=== PATIENT | male | born 1995 | race Hispanic/Latino ===

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

== ENCOUNTER 2017-05-07 16:41 | Emergency (ER) | payer MEDICARE ==
[2017-05-07 17:01] VITALS: BP 150/100
[2017-05-07] MEDS ORDERED: NACL 0.9% 1000 ML 1,000 ML IV ONE (17:08)
[2017-05-07 17:25] LABS: Basophils % (Auto) 0.3 % (0.0-1.8); Eosinophils # (Auto) 0.1 K/mm3 (0.0-0.4); Hematocrit 50.2 % (35.5-45.6); Lymphocytes # (Auto) 1.9 K/mm3 (1.2-5.4); Lymphocytes % (Auto) 17.3 % (13.4-35.0); Mean Corpuscular HGB Conc 34 % (32-34); Mean Corpuscular Hemoglobin 30 pg (28-32); Mean Corpuscular Volume 89 fl (84-94); Monocytes # (Auto) 0.9 K/mm3 (0.0-0.8); Platelet Count 244 K/mm3 (140-440); Red Blood Count 5.65 M/mm3 (3.65-5.03); Red Cell Distribution Width 13.6 % (13.2-15.2)
[2017-05-07 17:37] LABS: Alanine Aminotransferase 31 units/L (7-56); Albumin 4.5 g/dL (3.9-5); BUN/Creatinine Ratio 15; Blood Urea Nitrogen 12 mg/dL (9-20); Calcium 8.8 mg/dL (8.4-10.2); Hemolysis Index 11
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
[2017-05-07] MEDS ORDERED: TORADOL IV ONE (18:49)
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
[2017-05-07 19:36] LABS: Bilirubin,Urine NEG (Negative); Blood,Urine SM (Negative); Color,Urine Straw (Yellow); Nitrite,Urine NEG (Negative); Protein,Urine <15 mg/dL mg/dL (Negative); Urobilinogen,Urine < 2.0 mg/dL (<2.0); WBC,Urine < 1.0 /HPF (0.0-6.0)
[2017-05-07 19:51] LABS: Amphetamine Screen,Urine PRESUMPTIVE NEGATIVE; Benzodiazepines Screen,Urine PRESUMPTIVE NEGATIVE; Cannabinoid Screen,Urine PRESUMPTIVE NEGATIVE; Cocaine Screen,Urine PRESUMPTIVE NEGATIVE; Methadone Screen,Urine PRESUMPTIVE NEGATIVE; Opiate Screen,Urine PRESUMPTIVE NEGATIVE
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
[2017-05-07] MEDS ORDERED: DILAUDID IV ONE (20:51)
[2017-05-07] MEDS ORDERED: TRIPLE ANTIBIOTIC TP ONE (21:02)
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
== END 2017-05-07 21:15 | disposition home or self-care (01) ==
LOC: ED 16:41
DX: S00.81XA Abrasion of other part of head, initial encounter (principal); S09.8XXA Other specified injuries of head, initial encounter; S80.812A Abrasion, left lower leg, initial encounter; S40.812A Abrasion of left upper arm, initial encounter; J45.909 Unspecified asthma, uncomplicated; F90.8 Attention-deficit hyperactivity disorder, other type; R07.9 Chest pain, unspecified; V13.4XXA Pedal cycle driver injured in collision with car, pick-up truck or van in traffic accident, initial encounter; Y93.89 Activity, other specified; Y92.89 Other specified places as the place of occurrence of the external cause; Y99.8 Other external cause status
CPT/HCPCS: 36415; 70450; 70486; 71260; 72125; 73030; 73060; 73070; 73090; 73130; 73562; 73590; 73610; 73630; 74177; 80053; 80307; 81001; 82550; 84484; 85025; 96361; 96374; 96375; 99285; G0480; J1170; J1885; J7030; Q9967; 80320; A6250

== ENCOUNTER 2021-06-05 06:34 | Emergency (ER) | payer MEDICARE ==
--- NOTE | 2021-06-05 08:42 | XRay Report ---
CHEST 2 VIEWS INDICATION: COUGH, CP. COMPARISON: None FINDINGS: SUPPORT DEVICES: None. HEART: Within normal limits. LUNGS/PLEURA: No acute air space or interstitial disease. No pneumothorax. ADDITIONAL FINDINGS: None. IMPRESSION: 1. No acute findings. Signer Name: Otis Rivera MD Signed: 06/05/2021 8:37 AM Workstation Name: [id number]
[2021-06-05] MEDS ORDERED: BENZONATATE 100 MG CAP PO ONE (09:31)
--- NOTE | 2021-06-05 09:36 | Emergency Department Report ---
- General Chief Complaint: Dyspnea/Respdistress Stated Complaint: CHEST SIDE PAIN/COUGH Time Seen by Provider: 06/05/21 09:11 Source: patient Mode of arrival: Ambulatory Limitations: No Limitations - History of Present Illness Initial Comments: This is a 26-year-old male nontoxic, well nourished in appearance, no acute signs of distress presents to the ED with c/o of productive cough, rhinorrhea, nasal congestion x several days. Patient describes productive cough as yellow mucus production. Patient denies any sick contacts. Stated is COVID vaccinated. Patient denies any recent travels, long car, recent hospital stays. Patient denies any calf pain or calf tenderness. Patient denies any chest pain, short of breath, fever, chills, nausea, vomiting, hemoptysis, numbness, tingling, headache or stiff neck. Patient denies any allergies or significant past medical history. MD Complaint: cough, rhinorrhea, nasal congestion -: days(s) Severity: mild Severity scale (0 -10): 0 Improves With: nothing Worsens With: nothing Associated Symptoms: rhinorrhea, nasal congestion, cough. denies: fever, chills, myalgias, diaphoresis, headache, sore throat, stiff neck, chest pain, shortness of breath, abdominal pain, nausea, vomiting, diarrhea, dysuria, rash, confusion, right sweats, weight loss, epistaxis, hoarseness, ear pain Treatments Prior to Arrival: none - Related Data Home Medications Medication Instructions Recorded Confirmed Last Taken Albuterol Mdi (or & Nicu Only) 2 puff IH QID PRN 01/13/16 01/13/16 Unknown [Proair] Amphetamine Sulfate [Evekeo] 20 mg PO BID 01/13/16 01/13/16 01/13/16 Amphetamine Sulfate [Evekeo] 30 mg PO BID 01/13/16 01/13/16 01/13/16 Atomoxetine HCl [Strattera] 100 mg PO QDAY 01/13/16 01/13/16 01/13/16 Budesoni/Formoterol 80-4.5(Nf) 2 puff IH BID 01/13/16 01/13/16 01/13/16 [Symbicort 80-4.5 (Nf)] Cetirizine HCl [ZyrTEC] 10 mg PO DAILY 01/13/16 01/13/16 01/13/16 Dextroamphetamine/Amphetamine 30 mg PO QDAY 01/13/16 01/13/16 01/13/16 [Adderall XR 30 mg] Ibuprofen [Motrin] 600 mg PO Q8H PRN 01/13/16 01/13/16 Unknown Mirtazapine [Remeron] 45 mg PO HS 01/13/16 01/13/16 01/12/16 Ondansetron [Zofran Odt] 4 mg PO BID PRN 01/13/16 01/13/16 Unknown Trazodone HCl [traZODone] 300 mg PO QHS 01/13/16 01/13/16 01/12/16 lamoTRIgine [LaMICtal (Green)] 1 each PO DAILY 01/13/16 01/13/16 01/13/16 polyethylene glycoL 3350 [Miralax 1 scoop PO DAILY PRN 01/13/16 01/13/16 Unknown 3350] raNITIdine HCl [Zantac 150 MG TAB] 150 mg PO BID 01/13/16 01/13/16 01/13/16 Previous Rx's Medication Instructions Recorded Last Taken Type Cyclobenzaprine HCl [Flexeril 5 MG 5 mg PO TID #12 tab 01/13/16 Unknown Rx TAB] Ibuprofen [Motrin 800 MG tab] 800 mg PO Q8HR PRN #20 tablet 01/13/16 Unknown Rx Cyclobenzaprine [Flexeril] 10 mg PO TID PRN #30 tablet 05/07/17 Unknown Rx Ibuprofen [Ibuprofen 800] 800 mg PO TID PRN #30 tablet 05/07/17 Unknown Rx Benzonatate [Tessalon Perles] 100 mg PO Q8HR PRN #12 cap 06/05/21 Unknown Rx Allergies Allergy/AdvReac Type Severity Reaction Status Date / Time No Known Allergies Allergy Unverified 05/07/17 17:01 ED Review of Systems ROS: Stated complaint: CHEST SIDE PAIN/COUGH Other details as noted in HPI Comment: All other systems reviewed and negative Constitutional: denies: chills, fever Eyes: denies: eye pain, eye discharge, vision change ENT: congestion. denies: ear pain, throat pain Respiratory: cough. denies: shortness of breath, wheezing Cardiovascular: denies: chest pain, palpitations Endocrine: no symptoms reported Gastrointestinal: denies: abdominal pain, nausea, diarrhea Genitourinary: denies: urgency, dysuria Musculoskeletal: denies: back pain, joint swelling, arthralgia Skin: denies: rash, lesions Neurological: denies: headache, weakness, paresthesias Psychiatric: denies: anxiety, depression Hematological/Lymphatic: denies: easy bleeding, easy bruising ED Past Medical Hx - Past Medical History Hx Asthma: Yes Additional medical history: ADHD, aspergers - Surgical History Additional Surgical History: ear tubes - Social History Smoking Status: Never Smoker Substance Use Type: None - Medications Home Medications: Home Medications Medication Instructions Recorded Confirmed Last Taken Type Albuterol Mdi (or & Nicu Only) 2 puff IH QID PRN 01/13/16 01/13/16 Unknown History [Proair] Amphetamine Sulfate [Evekeo] 20 mg PO BID 01/13/16 01/13/16 01/13/16 History Amphetamine Sulfate [Evekeo] 30 mg PO BID 01/13/16 01/13/16 01/13/16 History Atomoxetine HCl [Strattera] 100 mg PO QDAY 01/13/16 01/13/16 01/13/16 History Budesoni/Formoterol 80-4.5(Nf) 2 puff IH BID 01/13/16 01/13/16 01/13/16 History [Symbicort 80-4.5 (Nf)] Cetirizine HCl [ZyrTEC] 10 mg PO DAILY 01/13/16 01/13/16 01/13/16 History Cyclobenzaprine HCl [Flexeril 5 MG 5 mg PO TID #12 tab 01/13/16 Unknown Rx TAB] Dextroamphetamine/Amphetamine 30 mg PO QDAY 01/13/16 01/13/16 01/13/16 History [Adderall XR 30 mg] Ibuprofen [Motrin 800 MG tab] 800 mg PO Q8HR PRN #20 tablet 01/13/16 Unknown Rx Ibuprofen [Motrin] 600 mg PO Q8H PRN 01/13/16 01/13/16 Unknown History Mirtazapine [Remeron] 45 mg PO HS 01/13/16 01/13/16 01/12/16 History Ondansetron [Zofran Odt] 4 mg PO BID PRN 01/13/16 01/13/16 Unknown History Trazodone HCl [traZODone] 300 mg PO QHS 01/13/16 01/13/16 01/12/16 History lamoTRIgine [LaMICtal (Green)] 1 each PO DAILY 01/13/16 01/13/16 01/13/16 History polyethylene glycoL 3350 [Miralax 1 scoop PO DAILY PRN 01/13/16 01/13/16 Unknown History 3350] raNITIdine HCl [Zantac 150 MG TAB] 150 mg PO BID 01/13/16 01/13/16 01/13/16 History Cyclobenzaprine [Flexeril] 10 mg PO TID PRN #30 tablet 05/07/17 Unknown Rx Ibuprofen [Ibuprofen 800] 800 mg PO TID PRN #30 tablet 05/07/17 Unknown Rx Benzonatate [Tessalon Perles] 100 mg PO Q8HR PRN #12 cap 06/05/21 Unknown Rx ED Physical Exam - General Limitations: No Limitations General appearance: alert, in no apparent distress - Head Head exam: Present: atraumatic, normocephalic - Eye Eye exam: Present: normal appearance - Neck Neck exam: Present: normal inspection, full ROM. Absent: lymphadenopathy - Respiratory Respiratory exam: Present: normal lung sounds bilaterally. Absent: respiratory distress, wheezes, rales, rhonchi, stridor, chest wall tenderness, accessory muscle use, decreased breath sounds, prolonged expiratory - Cardiovascular Cardiovascular Exam: Present: regular rate, normal rhythm, normal heart sounds. Absent: bradycardia, tachycardia, irregular rhythm, systolic murmur, diastolic murmur, rubs, gallop - Extremities Exam Extremities exam: Present: full ROM - Back Exam Back exam: Present: full ROM - Neurological Exam Neurological exam: Present: alert, oriented X3, normal gait - Psychiatric Psychiatric exam: Present: normal affect, normal mood - Skin Skin exam: Present: warm, dry, intact, normal color. Absent: rash ED Course Vital Signs 06/05/21 07:42 Temperature 98.2 F Pulse Rate 96 H Respiratory 18 Rate Blood Pressure 150/90 [Right] O2 Sat by Pulse 98 Oximetry - Reevaluation(s) Reevaluation #1: 06/05/21 09:34 Patient is speaking in full sentences with no signs of distress noted. ED Medical Decision Making - Radiology Data [facility] [address] [place] [address] XRay Report Signed Patient: LAURA CA JR MR#: [id number] : 1995 Acct:[id number] Age/Sex: 26 / M ADM Date: 06/05/21 Loc: ED Attending Dr: Ordering Physician: ADDIE ANSARI MD Date of Service: 06/05/21 Procedure(s): XR chest routine 2V Accession Number(s): [id number] cc: ADDIE ANSARI MD Fluoro Time In Minutes: CHEST 2 VIEWS INDICATION: COUGH, CP. COMPARISON: None FINDINGS: SUPPORT DEVICES: None. HEART: Within normal limits. LUNGS/PLEURA: No acute air space or interstitial disease. No pneumothorax. ADDITIONAL FINDINGS: None. IMPRESSION: 1. No acute findings. Signer Name: Otis Rivera MD Signed: 06/05/2021 8:37 AM Workstation Name: [id number] Transcribed By: JW Dictated By: Otis Rivera MD Electronically Authenticated By: Otis Rivera MD Signed Date/Time: 06/05/21836 DD/ 5 TD/TT: - Medical Decision Making This is a 26-year-old male that presents with viral upper respiratory symptoms. Patient is stable and was examined by me. Chest x-ray has been obtained and dictated by radiologist with normal exam. Patient is notified of x-ray results with no questions noted. Patient does not meet clinical concerns of COVID-19 but patient was instructed and educated on signs and symptoms and to self quarantine and seek medical attention as soon as possible if symptoms does occur. Patient was instructed to increase hydration, rest and take Motrin for fever episodes. Patient received motrin and tesslone perrls in the ED. Vitals stable. Patient is nonfebrile and normal heart rate. Patient was instructed Follow-up with a primary care doctor in 3-5 days or if symptoms worsen and continue return to emergency room as soon as possible. At time time of discharge, the patient does not seem toxic or ill in appearance. No acute signs of distress noted. Patient agrees to discharge treatment plan of care. No further questions noted by the patient.nt. Critical care attestation.: If time is entered above; I have spent that time in minutes in the direct care of this critically ill patient, excluding procedure time. ED Disposition Clinical Impression: Viral upper respiratory illness Disposition: 01 HOME / SELF CARE / HOMELESS Is pt being admited?: No Does the pt Need Aspirin: No Condition: Stable Additional Instructions: Follow-up with a primary care doctor in 3-5 days or if symptoms worsen and continue return to emergency room as soon as possible. Your symptoms appear most consistent with a nonspecific viral syndrome. However, given this current pandemic, COVID-19 is in the differential of possibilities. Despite your previous negative COVID-19 test, I do recommend repeat outpatient Covid 19 testing. In the meantime, isolate/quarantine yourself and stay away from anyone who is elderly, immunocompromised or chronically ill. Please see your nearest health department or primary care doctor that you are referred to for COVID testing. Increased rest, hydration, and take [id number] Tylenol as directed from instructions label for pain/fever episode. Prescriptions: Benzonatate [Tessalon Perles] 100 mg PO Q8HR PRN #12 cap PRN Reason: Cough Referrals: ANA MORROW MD [Primary Care Provider] - 3-5 Days PRIMARY CAREMD [Referring] - 3-5 Days Time of Disposition: 09:37
[2021-06-05 10:33] VITALS: BP 128/73
== END 2021-06-05 10:34 | disposition home or self-care (01) ==
LOC: ED 06:34
DX: J06.9 Acute upper respiratory infection, unspecified (principal); J45.909 Unspecified asthma, uncomplicated
CPT/HCPCS: 71046; 99283

== ENCOUNTER 2021-11-27 15:38 | Emergency (ER) | payer MEDICARE | END 2021-11-27 18:23 | disposition left against medical advice (07) | LOC: ED 15:38 | DX: R51.9 Headache, unspecified (principal); Z53.21 Procedure and treatment not carried out due to patient leaving prior to being seen by health care provider ==